=== PATIENT | female | born 1960 | race Caucasian/White ===

== ENCOUNTER 2020-04-08 17:04 | Inpatient (IN) | payer MEDICARE, MEDICAID, SELFPAY ==
[2020-04-08] VITALS (9 sets, daily range): BP systolic 97–144; BP diastolic 62–79; PULSE 71–87; RESP 16–20; TEMP 36.3–36.8; O2SAT 98–100; BMI 19.1
--- NOTE | ~2020-04-08 | US_ITS ---
EXAMINATION: US carotid duplex BI DATE: 04/09/2020 13:04 INDICATION: Intermittent slurred speech. TECHNIQUE: Grayscale, color Doppler, and pulsed Doppler images of the cervical carotid arteries were obtained. The degree of vessel stenosis is placed in one of the following categories: normal, <50%, 5 0-69%, >=70% but less than near-occlusion, near-occlusion, or total occlusion. Note that percent sten osis relative to normal distal artery lumen diameter is indirectly measured from velocity measurement s as described by Suhail, et al. Radiology 2003; 229:340-346. COMPARISON: None. FINDINGS: RIGHT: The right common carotid artery (CCA) peak systolic velocity (PSV) is 79 cm/s. The right internal car otid artery (ICA) PSV is 78 cm/s. The right ICA end-diastolic velocity (EDV) is 11 cm/s. The right IC A/CCA PSV ratio is 1.0. Grayscale and color Doppler images yield an estimate of <50% diameter reducti on from plaque in the ICA. There is antegrade flow in the right vertebral artery. LEFT: The left CCA PSV is 69 cm/s. The left ICA PSV is 64 cm/s. The left ICA EDV is 15 cm/s. The left ICA/C CA PSV ratio is 0.9. Grayscale and color Doppler images yield an estimate of <50% diameter reduction from plaque in the ICA. There is antegrade flow in the left vertebral artery. IMPRESSION: 1. <50% stenosis in the right internal carotid artery. 2. <50% stenosis in the left internal carotid artery. Reviewed, dictated and finalized at location A.
--- NOTE | ~2020-04-08 | XR_ITS ---
EXAMINATION: XR chest 1V DATE: 04/08/2020 18:10 INDICATION: Intermittent slurred speech. TECHNIQUE: A single frontal view of the chest was obtained. COMPARISON: None. FINDINGS: There is mild scarring at right lung apex. No pleural effusion or pneumothorax. The heart s ize is normal. IMPRESSION: 1. Mild scarring at right lung apex. Reviewed, dictated and finalized at location A.
--- NOTE | ~2020-04-08 | MR_ITS ---
EXAMINATION: MR brain/brain stem wo/w con DATE: 04/09/2020 12:38 INDICATION: Stroke. Slurred speech. TECHNIQUE: Magnetic resonance imaging (MRI) of the brain and brainstem was performed without and with 8 mL MultiHance intravenous contrast. Sequences included sagittal and axial T1-weighted FSE, axial d iffusion-weighted FS EPI, axial T2*-weighted GRE, axial T2-weighted FLAIR Propeller, and axial T2-vaughn ghted Propeller. Postcontrast sequences included axial and coronal T1-weighted FSE. Apparent diffusio n coefficient (ADC) maps were created. COMPARISON: Head CT 04/08/2020 FINDINGS: There is chronic encephalomalacia in right frontotemporal region. There is an old lacunar i nfarct in left caudate nucleus. There is a punctate acute infarct in right frontoparietal region. The re is a small acute infarct in right parietal lobe. There are small acute infarcts in the bilateral f rontal lobe deep white matter. There is a small acute infarct in the left frontoparietal region. Ther e is no intracranial hemorrhage. There are scattered areas of nonspecific increased T2-weighted signa l intensity in the cerebral white matter, which is within normal limits for the patient's age. There is a wedge-shaped small enhancing lesion in right cerebellum, likely a subacute infarct. There is ex vacuo dilatation of temporal horn of right lateral ventricle. The paranasal sinuses are clear. The or bits are normal. The mastoid air cells are normal. IMPRESSION: 1. Small acute infarcts in the frontal lobes, right parietal lobe, and left frontoparietal region. 2. Small enhancing lesion in right cerebellum, likely a subacute infarct. 3. Chronic encephalomalacia in right frontotemporal region. Old lacunar infarct in left caudate nucle us. Reviewed, dictated and finalized at location A. IMPRESSION: 1. Small acute infarcts in the frontal lobes, right parietal lobe, and left fro ntoparietal region. 2. Small enhancing lesion in right cerebellum, likely a subacute infarct. 3. Chronic encephalomalacia in right frontotemporal region. Old lacunar infarct in left caudate nucleus.
--- NOTE | ~2020-04-08 | CT_ITS ---
EXAMINATION: CT brain wo con DATE: 04/08/2020 18:07 INDICATION: Intermittent slurred speech. TECHNIQUE: Computed tomography (CT) of the head was performed without intravenous contrast. The mA wa s adjusted according to patient size. Iterative reconstruction technique was employed. The dose-lengt h product was 605.33 mGy-cm. COMPARISON: None FINDINGS: There is chronic encephalomalacia in the right frontotemporal region. There is an old lacun ar infarct in left caudate nucleus. There are scattered areas of low attenuation in the cerebral whit e matter, which is within normal limits for the patient's age. There is no intracranial hemorrhage, a cute infarction, or abnormal intracranial mass lesion. There is ex vacuo dilatation of temporal horn of right lateral ventricle. The paranasal sinuses are clear. The orbits are normal. The mastoid air c ells are normal. IMPRESSION: 1. Chronic encephalomalacia in right frontotemporal region. 2. Old lacunar infarct in left caudate nucleus. Reviewed, dictated and finalized at location A.
--- NOTE | 2020-04-08 17:17 | ED.NEUROSD ---
HPI - Neuro Symptoms/Deficit General Chief Complaint: Neuro Symptoms/Deficit Stated Complaint: MILD STROKES Time Seen by Provider: 04/08/20 17:17 Source: patient and family Mode of arrival: wheelchair Limitations: no limitations History of Present Illness HPI Narrative: Patient is a 5-year-old female who presents with her daughter for evaluation of various symptoms. Per the patient, she states she is here for acute on chronic lower back pain. Pain is described as dull, aching in nature, mild in nature. Patient states it has been very chronic for her. Patient's daughter states she is worried that her mom is been having small strokes, states that she has times throughout the day where she seems intermittently confused. She has had short periods of time, approximately 1 to 3 minutes, where the daughter has felt the patient experienced some difficulty with speech. Patient denies any current difficulty with speech, facial numbness, arm numbness or leg numbness. Patient's daughter states her mom has not been very reliable with her healthcare over the past several months. She was going to see a new primary care physician, but was not able to obtain follow-up due to a canceled appointment. Patient denies any fever, chills, nausea, vomiting, chest pain or abdominal pain. Related Data Home Medications Medication Instructions Recorded Confirmed No Home Medications 04/08/20 04/08/20 Allergies Allergy/AdvReac Type Severity Reaction Status Date / Time No Known Allergies Allergy Mild Verified 04/08/20 17:21 Review of Systems Review of Systems: Narrative: CONSTITUTIONAL: Denies fever, chills, or sweats. EYES: Denies visual changes, redness, or discharge. ENT: Denies rhinorrhea, congestion, sore throat, or otalgia. CARDIOVASCULAR: Denies chest pain, palpitations, or edema. RESPIRATORY: Denies cough or dyspnea. GASTROINTESTINAL: Denies abdominal pain, nausea, vomiting, or diarrhea. GENITOURINARY: Denies dysuria or hematuria. SKIN: Denies rash or itching. MUSCULOSKELETAL: Denies back pain, joint pain, or myalgia. NEUROLOGIC: Denies headache, numbness, or weakness. FORMERLY [facility], [facility] Past Medical History Medical History (Updated 04/08/20 @ 18:27 by Lisa Patrick MD) No pertinent past medical history Surgical History Surgical History (Updated 04/08/20 @ 18:10 by Lisa Patrick MD) No pertinent past surgical history Social History Social History (Updated 04/08/20 @ 18:11 by Lisa Patrick MD) Smoking status: Current every day smoker Tobacco type: cigarettes Alcohol intake: never Substance use: never Living arrangements: alone Gender identity (if verbalized by the patient): Female Exam Narrative: Exam Narrative: GENERAL: Awake, alert, conversant, thin HEAD: Normocephalic, atraumatic. EYES: PERRLA and EOMI. ENT: Nares clear, no rhinorrhea or epistaxis. Mucous membranes moist. NECK: Supple. CHEST: No respiratory distress, breathing even and non labored HEART: Regular rate, sinus rhythm ABDOMEN:Non distended, non tender EXTREMITIES: Normal range of motion. No edema. SKIN: Warm, dry, no rash. NEURO:No focal deficits. Alert and oriented x3 Course Vital Signs Vital signs: Vital Signs Pulse Rate 85 04/08/20 17:17 Respiratory Rate 16 04/08/20 17:17 Blood Pressure 144/79 H 04/08/20 17:17 Pulse Oximetry 100 04/08/20 17:17 Pulse Rate 87 04/08/20 18:36 Respiratory Rate 20 04/08/20 18:36 Blood Pressure 138/70 04/08/20 18:36 Pulse Oximetry 98 04/08/20 18:36 MDM - Neuro Symptoms/Deficit MDM Narrative Medical decision making narrative: Patient presenting for evaluation of concern from stroke from daughter who has noticed intermittent speech difficulties and patient over the past several weeks. At the time of initial assessment, ABCs are intact and vital signs are stable. Physical exam notable for thin patient who without any focal neurological deficits. No pain on exam. She does
--- NOTE | 2020-04-08 17:39 | ECG_ITS ---
Measurements Intervals [place] Rate: 86 P: 69 DE: 190 QRS: -62 QRSD: 134 T: 31 QT: 413 QTc: 496 Interpretive Statements SINUS RHYTHM POSSIBLE LEFT ATRIAL ENLARGEMENT LEFT AXIS DEVIATION RIGHT BUNDLE BRANCH BLOCK BASELINE ARTIFACT- I, II, AVR, AVL, AVF ABNORMAL ECG Electronically Signed On 04-09-2020 7:42:29 CDT by Zack Mtz D.O.
[2020-04-08 17:51] LABS: Glucose Point of Care 108 (65-105)
[2020-04-08 17:53] LABS: Basophils Percent Auto 0.3 % (0.2-1.2); Eosinophils Absolute Auto 0.1 K/mm3 (0-0.3); Eosinophils Percent Auto 1.1 % (0-4.4); Hematocrit 34.4 % (37.0-47.0); Hemoglobin 11.6 g/dL (12.0-15.0); Immature Granulocyte Absolute 0.01 K/mm3 (0.00-0.031); Immature Granulocyte Percent A 0.2 % (0-0.5); Lymphocytes Absolute Auto 2.18 K/mm3 (0.9-3.2); Lymphocytes Percent Auto 34.1 % (18.3-44.2); Mean Corpuscular HGB Conc 33.7 g/dl (32-36); Mean Corpuscular Hemoglobin 30.3 pg (26-34); Mean Corpuscular Volume 89.8 fl (80-100); Mean Platelet Volume 9.3 fl (7.4-10.4); Monocytes Absolute Auto 0.5 K/mm3 (0.1-0.6); Monocytes Percent Auto 7.2 % (2.6-8.5); Neutrophils Absolute Auto 3.7 K/mm3 (1.3-6.7); Neutrophils Percent Auto 57.1 % (45.5-73.1); Platelet Count Result 215 k/mm3 (150-375); Red Blood Count 3.83 M/mm3 (4.2-5.4); Red Cell Distribution Width 14.9 % (11.5-14.5); White Blood Count 6.4 K/mm3 (4.5-10.0)
[2020-04-08 18:02] LABS: INR 1.2; Prothrombin Time 14.9 Seconds (11.1-14.7)
[2020-04-08 18:03] LABS: Partial Thromboplastin Time 30.8 SECONDS (22.3-36.8)
[2020-04-08 18:14] LABS: Blood Urea Nitrogen 7 mg/dL (7-17); Calcium 8.4 mg/dL (8.4-10.2); Carbon Dioxide 24 mmol/L (22-30); Chloride 100 mmol/L (98-107); Estimated CRCL calculation 46 ml/min; Estimated Glomerular Filt Rate > 60; Glucose 113 mg/dL (65-105); Potassium 2.6 mmol/L (3.4-5.0); Sodium 134 mmol/L (137-145)
[2020-04-08] MEDS: LORazepam 0.5 MG TABLET PO (18:14)
--- NOTE | 2020-04-08 18:26 | PC.NURSE ---
RN at bedside. Pt placed on bedpan. Daughter at bedside, call light within reach.
[2020-04-08] MEDS: POTASSIUM CHLORIDE 20 MEQ PACKET (FOR LIQUID) 40 MEQ PO (18:36)
--- NOTE | 2020-04-08 19:47 | PC.NURSE ---
RN spoke with Dr. Patrick to clarify- Potassium order in the system twice. Only to give one dose of potassium at this time.
--- NOTE | 2020-04-08 22:44 | ADMIMU ---
This patient, Madalyn Honeycutt, was admitted to IMU status, and placed in IMU Room 209-01 on 04/08/20 at 2116. Patient/family oriented to hospital policies and general routines including ID bracelet, bed and alarms, visiting hours, pain management, procedures, bathroom and other care routines, personal items, smoking policy, room service/diet, and visiting hours. Valuables list has been completed. Information on how to activate the Rapid Response Team has been discussed. Patient/Family are encouraged to report perceived risks to care and to ask questions if they do not understand what they are told or what they should do.
[2020-04-08 22:45] LABS: Troponin I 0.083 ng/mL (0.000-0.034)
[2020-04-08 23:01] LABS: Blood Urea Nitrogen 6 mg/dL (7-17); Calcium 8.8 mg/dL (8.4-10.2); Carbon Dioxide 24 mmol/L (22-30); Chloride 102 mmol/L (98-107); Estimated CRCL calculation 46 ml/min; Estimated Glomerular Filt Rate > 60; Glucose 93 mg/dL (65-105); Potassium 3.1 mmol/L (3.4-5.0); Sodium 134 mmol/L (137-145)
--- NOTE | 2020-04-08 23:02 | PM.IMHP ---
H&P: HPI History of Present Illness Chief complaint: CVA, hypokalemia, elevated troponin Narrative: Madalyn Honeycutt is a 59 year old female who is brought to the emergency room by her daughter. The patient tells me that she lives with her daughter. The daughter was concerned about her having stroke-like symptoms. The patient has chronic lower back pain but does not take any pain medication for lower back pain. The patient stated that she injured her pack years ago and uses a back brace. The patient stated that she has not been eating very well lately because she it has been too hot she just does not feel like eating. She has no abdominal pain. No nausea vomiting no diarrhea. No complaints of any fever. Patient has short periods of confusion at times lasting about 1-3 minutes. Patient was having some difficulty with her speech the daughter Vin states that her mom has not been very reliable with her healthcare over the past several months. The patient tells me she has not had any health problems and she is not on any medication nor has she has a surgeries. Patient was not able to follow-up with her primary care doctor due to canceled appointment. Her H&H was noted to be 11.6 and 34.4. Her potassium was found to be 2.6 which came up to 3.1 after potassium supplement. Patient was given Ativan x1 and oral potassium in the emergency room. Head CT was read as chronic encephalomalacia in the right frontal temporal region. Old lacunar infarct in the left caudate nucleus. Initial troponin 0.080. Three or troponin is 0.083. Patient denies any chest pain. Neurology has been consulted. Cardiology has been consulted. Date of service 04/08/2020 Review of Systems Review of Systems: All systems reviewed & are unremarkable except as noted in HPI and below Constitutional: Constitutional: Reports as per HPI and Reports no additional constitutional complaints Eyes: Eyes: Reports as per HPI and Reports no additional eye complaints ENT: Reports system reviewed and no additional complaints, except as documented and Reports Normal hearing present Cardiovascular: Cardiovascular: Reports no additional cardiovascular complaints Respiratory: Respiratory: Reports no additional respiratory complaints and Reports no additional respiratory complaints Gastrointestinal: Gastrointestinal: Reports as per HPI and Reports no additional gastrointestinal complaints Musculoskeletal: Musculoskeletal: Reports no additional musculoskeletal complaints Integumentary/Breasts: Skin/Breast: Reports system reviewed and no additional complaints, except as docu and Reports as per HPI Neurologic: Reports system reviewed and no additional complaints, except as documented, Reports as per HPI and Reports Normal hearing present Psychiatric: Psychiatric: Reports no additional psychiatric complaints and Reports as per HPI Endocrine: Endocrine: Reports no additional endocrine complaints Hematologic/Lymphatic: Hematologic/Lymphatic: Reports no additional hematologic/lymphatic complaints Allergic/Immunologic: Allergic/Immunologic: Reports no additional allergic/immunologic complaints [facility] Past Medical History Medical History (Updated 04/08/20 @ 23:10 by Romina Han NP) Chronic back pain CVA (cerebral vascular accident) No pertinent past medical history Surgical History Surgical History No pertinent past surgical history Family History Family History (Updated 04/08/20 @ 23:12 by Romina Han NP) Mother maternal Other Unknown family medical history Social History Social History (Updated 04/08/20 @ 23:14 by Romina Han NP) Social History: The patient tells me that she lives with her daughter. She tells me that her daughter that she lives with is the durable power piccolo mechanic for healthcare. The patient tells me that she is . Her she has 3 daughters and 2 sons.
[2020-04-08] MEDS: ASPIRIN 325 MG ENTERIC TABLET PO (23:57)
[2020-04-08] MEDS: POTASSIUM CHLORIDE 20 MEQ PACKET (FOR LIQUID) PO (23:57)
[2020-04-09] VITALS (14 sets, daily range): BP systolic 98–117; BP diastolic 41–84; PULSE 49–75; RESP 16–20; TEMP 36.5–37.4; O2SAT 100
--- NOTE | 2020-04-09 | ECHO_ITS ---
Patient Info Name: Madalyn Honeycutt Age: 59 years : 1960 Gender: Female Ht: 60 in Wt: 98 lbs BSA: 1.37 m2 HR: 83 bpm BP: 110 / 54 mmHg Technical Quality: Good Exam Date: 04/09/2020 8:48 AM Exam Location: [facility] Pulmonary Exam Room: 209 Patient Status: Inpatient Admit Date: 04/08/2020 Staff Ordering Physician: Lisa Patrick MD Lamina Searcher: Meagan Case RDCS Attending Provider: Melonie Dai MD Referring Physician: Celina STEPHEN; Exam Type: CA echo doppler color flow Study Info Indications - elevated trops Complete two-dimensional, color flow and Doppler transthoracic echocardiogram is performed. Summary 1. Left ventricular chamber dimension is normal. 2. Left ventricular systolic function is normal, estimated at 65-70%. 3. Left ventricular septal wall motion is normal. 4. Right ventricular chamber dimension is normal. 5. Right ventricular systolic function is normal. 6. There is mild tricuspid valve regurgitation. 7. Mild pulmonary hypertension, estimated pulmonary arterial systolic pressure is 30 mmHg. Left Ventricle Left ventricular chamber dimension is normal. Left ventricular systolic function is normal, estimated at 65-70%. There is no increased left ventricular wall thickness. Left ventricular septal wall motion is normal. The left ventricular diastolic function is normal. Right Ventricle Right ventricular chamber dimension is normal. Right ventricular systolic function is normal. Left Atria Left atrial chamber dimension is normal. Right Atria Right atrial chamber dimension is mildly enlarged. Aortic Valve The aortic valve is trileaflet. There is no aortic valve sclerosis. There is no aortic valve stenosis. There is no aortic valve regurgitation. Pulmonic Valve The pulmonic valve is normal. There is no pulmonic valve stenosis. There is no pulmonic regurgitation. Mitral Valve The mitral valve has normal leaflets. There is no mitral valve stenosis. There is no mitral valve regurgitation. Tricuspid Valve The tricuspid valve leaflets are normal. There is no significant tricuspid valve stenosis. There is mild tricuspid valve regurgitation. Mild pulmonary hypertension, estimated pulmonary arterial systolic pressure is 30 mmHg. Pericardium/Pleural The pericardium appears normal. There is no pericardial effusion. Inferior Vena Cava Normal inferior vena cava with >50% collapse upon inspiration consistent with normal right atrial pressure, 10 mmHg. Aorta The aortic root size at the sinus of Valsalva is normal. The prox ascending aorta size is normal. Left Ventricular Outflow Tract Name Value Normal LVOT 2D LVOT Diameter 2.0 cm LVOT Doppler LVOT Peak Gradient 4 mmHg LVOT Mean Gradient 2 mmHg LVOT VTI 22 cm LVOT VTI/AV VTI Ratio 1.1 LVOT Stroke Volume 67 ml LVOT CO 13.2 l/min LVOT CI 9.7 l/min/m2
[2020-04-09 04:53] LABS: Basophils Percent Auto 0.6 % (0.2-1.2); Eosinophils Absolute Auto 0.1 K/mm3 (0-0.3); Hematocrit 34.4 % (37.0-47.0); Hemoglobin 11.3 g/dL (12.0-15.0); Immature Granulocyte Absolute 0.01 K/mm3 (0.00-0.031); Immature Granulocyte Percent A 0.2 % (0-0.5); Lymphocytes Absolute Auto 1.93 K/mm3 (0.9-3.2); Lymphocytes Percent Auto 38.4 % (18.3-44.2); Mean Corpuscular HGB Conc 32.8 g/dl (32-36); Mean Corpuscular Hemoglobin 29.4 pg (26-34); Mean Corpuscular Volume 89.6 fl (80-100); Mean Platelet Volume 9.3 fl (7.4-10.4); Monocytes Absolute Auto 0.4 K/mm3 (0.1-0.6); Neutrophils Absolute Auto 2.6 K/mm3 (1.3-6.7); Neutrophils Percent Auto 51.8 % (45.5-73.1); Platelet Count Result 203 k/mm3 (150-375); Red Blood Count 3.84 M/mm3 (4.2-5.4); Red Cell Distribution Width 14.7 % (11.5-14.5)
[2020-04-09 05:10] LABS: Blood Urea Nitrogen 6 mg/dL (7-17); CRP 1.3 mg/dL (<1.0); Calcium 8.5 mg/dL (8.4-10.2); Carbon Dioxide 24 mmol/L (22-30); Chloride 106 mmol/L (98-107); Estimated CRCL calculation 50 ml/min; Estimated Glomerular Filt Rate > 60; Glucose 80 mg/dL (65-105); Magnesium 1.8 mg/dL (1.6-2.3); Potassium 3.7 mmol/L (3.4-5.0); Sodium 135 mmol/L (137-145)
[2020-04-09 05:26] LABS: Troponin I 0.092 ng/mL (0.000-0.034)
[2020-04-09] MEDS: ASPIRIN 81 MG ENTERIC TABLET PO (08:15)
--- NOTE | 2020-04-09 11:36 | PM.CNCAR ---
Assessment and Plan Additional Plan mild elevation in trop in setting of possible stroke, no evidence of ACS, no dynamic EKG changes, Trop with no significant changes, TTE with normal EF and no regional wall motion abnormalities, plan, no further cardiac work up needed, evaluation for stroke History of Present Illness History of Present Illness Consult date/time: 04/09/20 11:36 Consult reason: Other (elevated troponin) Reason For Visit: CVA, hypokalemia, elevated troponin Narrative: Patient presented with her daughter because of noted facial asymmetry. She used to live by herself but with her daughter help, but last 3 days, daughter noted that ptn is weaker and have worsening back pain and decreased activity with facial asymmetry when she talks. Patient is not complaining of pain or numbness or weakness. It was noted that her troponin was mildly elevated but no chest pain. Review of Systems Review of Systems: All systems reviewed & are unremarkable except as noted in HPI and below PMFSH Past Medical History Medical History (Updated 04/08/20 @ 23:10 by Romina Han NP) Chronic back pain CVA (cerebral vascular accident) No pertinent past medical history Surgical History Surgical History No pertinent past surgical history Family History Family History (Updated 04/08/20 @ 23:12 by Romina Han NP) Mother maternal Other Unknown family medical history Social History Social History (Updated 04/08/20 @ 23:14 by Romina Han NP) Social History: The patient tells me that she lives with her daughter. She tells me that her daughter that she lives with is the durable power attorney recruiter for healthcare. The patient tells me that she is . Her she has 3 daughters and 2 sons. She smokes 7 -8 cigarettes a day. She drinks about 2 beers every 3-4 days. She is on disability. She is a full code. Years smoked: 42 Smoking status: Light tobacco smoker Tobacco type: cigarettes Second hand tobacco smoke exposure: Yes Alcohol intake: current Drinks per week: 2 Substance use: never Substance use type: does not use Living arrangements: alone Gender identity (if verbalized by the patient): Female Spiritual care concerns: No Meds Home Medications and Allergies Home Medications Medication Instructions Recorded Confirmed Type No Home Medications 04/08/20 04/08/20 History Allergies Allergy/AdvReac Type Severity Reaction Status Date / Time No Known Allergies Allergy Mild Verified 04/08/20 17:21 Vital Signs Vital Signs - 24 hr 04/08/20 17:17 04/08/20 17:45 04/08/20 18:36 Temperature Pulse Rate 85 81 87 Respiratory Rate 16 16 20 Blood Pressure 144/79 H 129/66 138/70 Pulse Oximetry 100 98 98 04/08/20 19:48 04/08/20 21:01 04/08/20 21:02 Temperature 36.8 C Pulse Rate 75 72 72 Respiratory Rate 18 20 20 Blood Pressure 117/62 97/62 L 97/62 L Pulse Oximetry 100 100 100 04/08/20 21:20 04/08/20 21:30 04/08/20 22:00 Temperature 36.3 C L Pulse Rate 71 72 74 Respiratory Rate 18 Blood Pressure 117/63 Pulse Oximetry 100 04/09/20 00:00 04/09/20 02:00 04/09/20 04:00 Temperature 37.4 C Pulse Rate 69 57 L 61 Respiratory Rate 16 Blood Pressure 117/67 Pulse Oximetry 100 04/09/20 04:25 04/09/20 06:00 04/09/20 08:00 Temperature 36.7 C 36.5 C Pulse Rate 63 49 L 75 Respiratory Rate 18 16 Blood Pressure 110/54 L 102/41 L Pulse Oximetry 100 100 04/09/20 10:00 Temperature Pulse Rate 68 Respiratory Rate Blood Pressure Pulse Oximetry Exam Const: General: comfortable and no acute distress Other: Able to lie flat HENMT: General nose exam: Normal nares present and no epistaxis Mouth: Yes moist mucous membranes Eyes: General: appearance normal, both eyes and all related structures Sclera: sclerae normal Pupils: Equal, round and reactive pupils pr
--- NOTE | 2020-04-09 12:33 | PCOTNOTE ---
Patient independent in room at this time as reported by RN. Physician notified and discussion of awaiting MRI results before proceeding with any therapy. Patient may D/C today pending results and medical status.
--- NOTE | 2020-04-09 12:34 | PCPTNOTE ---
*PT/OT orders received....per NSG patient is ambulating INDEP'LY in her room...patient is currently at MRI... suggested to see the patient following MRI
[2020-04-09] MEDS: POTASSIUM CHLORIDE 20 MEQ TABLET PO (13:22)
--- NOTE | 2020-04-09 15:29 | PM.IMPN ---
Progress Note: A&P Assessment and Plan (1) Elevated troponin: Code(s): R79.89 - Other specified abnormal findings of blood chemistry Status: Acute Assessment and Plan: Patient's troponin levels are level. She is not having any chest pain. Cardiology has seen does not think that this is acute coronary event and I agree. Echo normal ejection fraction 65% with no wall motion abnormalities either. (2) Acute hypokalemia: Code(s): E87.6 - Hypokalemia Status: Acute Assessment and Plan: Replace potassium as needed. 2.6-3.7. It feels much better (3) Cerebrovascular accident: Code(s): I63.9 - Cerebral infarction, unspecified Status: Acute Assessment and Plan: started the patient on an aspirin daily. MR revealed acute infarct in the left and right frontal areas. Statin will be added and smoking cessation will be much more important. Carotid Dopplers are negative and echocardiogram revealed no source of any emboli. EKG sinus rhythm but will continue to monitor (4) Chronic back pain: Code(s): M54.9 - Dorsalgia, unspecified; G89.29 - Other chronic pain Status: Chronic Assessment and Plan: Physical therapy and occupational therapy to evaluate the patient. She is not on any chronic pain medications. Subjective Date/time seen: 04/09/20 15:29 Interval history: Date of visit 04/09. 59-year-old white female smoker presented to emergency room when her family noticed some difficulty with speech and was concerned about possible stroke. Symptoms here had abated but was hypokalemic with a slight elevation in troponin so she is admitted for evaluation of the same. Presently she feels fine with no specific plaques Exam Narrative: Exam Narrative: Blood pressure 106/84 pulse is 66 saturating 100% on room air afebrile Pupils equal reactive to light sclera anicteric Lungs clear no wheezing or consolidation CV regular rate rhythm no murmurs Abdomen is soft nontender Extremities without edema good distal pulses Neuro alert pleasant cooperative no focal deficits at present time Objective Data Vital Signs Vital Signs: Vital Signs - 24 hr 04/08/20 17:17 04/08/20 17:45 04/08/20 18:36 Temperature Pulse Rate 85 81 87 Respiratory Rate 16 16 20 Blood Pressure 144/79 H 129/66 138/70 Pulse Oximetry 100 98 98 04/08/20 19:48 04/08/20 21:01 04/08/20 21:02 Temperature 36.8 C Pulse Rate 75 72 72 Respiratory Rate 18 20 20 Blood Pressure 117/62 97/62 L 97/62 L Pulse Oximetry 100 100 100 04/08/20 21:20 04/08/20 21:30 04/08/20 22:00 Temperature 36.3 C L Pulse Rate 71 72 74 Respiratory Rate 18 Blood Pressure 117/63 Pulse Oximetry 100 04/09/20 00:00 04/09/20 02:00 04/09/20 04:00 Temperature 37.4 C Pulse Rate 69 57 L 61 Respiratory Rate 16 Blood Pressure 117/67 Pulse Oximetry 100 04/09/20 04:25 04/09/20 06:00 04/09/20 08:00 Temperature 36.7 C 36.5 C Pulse Rate 63 49 L 75 Respiratory Rate 18 16 Blood Pressure 110/54 L 102/41 L Pulse Oximetry 100 100 04/09/20 10:00 04/09/20 12:00 04/09/20 14:00 Temperature 37.2 C Pulse Rate 68 62 68 Respiratory Rate 16 Blood Pressure 106/84 Pulse Oximetry 100 Intake/Output Intake/Output: Intake & Output 04/06/20 04/07/20 04/08/20 04/09/20 23:59 23:59 23:59 23:59 Intake Total 580 Output Total 675 50 Balance -675 530 Meds/Results Medications: Active Medications Generic Name Dose Route Start Last Admin Trade Name Freq PRN Reason Stop Dose Admin Acetaminophen 650 mg 04/08/20 18:52 Tylenol Tablet PO Q4H PRN Mild Pain (1-3) or Fever Aspirin 81 mg 04/09/20 09:00 04/09/20 08:15 Aspirin Ec PO 81 mg QAM [place] Administration Atorvastatin Calcium 20 mg 04/10/20 09:00 Lipitor PO DAILY [facility] Radiology Results: ITS Impressions Head CT 04/08/20 18:08 IMPRESSION: 1. Chronic encephalomalacia in right frontotemporal region.
--- NOTE | 2020-04-09 15:39 | CONS_ITS ---
DATE OF CONSULTATION: 04/08/[address] Melonie Dai. HISTORY OF PRESENT ILLNESS: A 59-year-old has been admitted to [facility] through the emergency room, where she was brought by her daughter with the concern about the stroke-like symptoms. In addition to the ongoing history of: 1. Chronic low back pain for which she does not take any medication. 2. Recently not eating very well without any symptomatology in reference to the belly. 3. The patient was having some difficulty with speech as per the daughter. The patient herself has not been taking any medication. At the time of initial evaluation in the emergency room, she was found to have the potassium of 2.6, which came up to 3.[address] scan revealed chronic encephalomalacia in the right frontal temporal lobe and old lacunar infarct in left caudate nucleus. Troponin was 0.080. Additionally, the patient has ongoing history of as mentioned above: 1. Chronic back pain. 2. History of the previous cerebrovascular accident. 3. No specific surgery. 4. Current alcohol intaker and also drinking 2 drinks per week, also smoking though light. MEDICATIONS: The patient had not been taking any medication. ALLERGIES: SHE HAS NOT BEEN ALLERGIC TO ANY MEDICATION. PHYSICAL EXAMINATION: VITAL SIGNS: Evaluation revealed her to have normal vital signs. GENERAL: Normal. HEENT: Head normocephalic with no cranial bruit. Ear, nose, throat examination normal. NECK: Supple with no cervical bruit. No thyromegaly. No lymphadenopathy. HEART: Regular with no murmur. LUNGS: Clear to auscultation with no rhonchi or crepitation. NEUROLOGICAL: She was awake, alert, cooperative, in no obvious acute distress. Pupils round, regular. Franz of vision full. Extraocular movements full. Face symmetrical. Tongue midline. Motor examination revealed her to have left-sided subtle weakness with hyperreflexia. Upgoing plantar responses. There was no evidence of gross cerebellar deficit. LABORATORY STUDIES: Evaluation up until now included a Doppler study of the carotid, which revealed normal left ventricular dimension, function, motion with mild tricuspid regurgitation and mild pulmonary hypertension. Carotid Doppler study at this stage is pending and so as the MRI, but the initial CT scan of the head in the emergency room documented chronic encephalomalacia in the right frontotemporal region. PLAN: If the Doppler studies come back negative, then she will be discharged on aspirin 81 mg daily in addition to the Keppra 500 mg q.12 hours, because she could very well have the seizure, because of the focal cerebral insult and needs to be followed as an outpatient. BRIAN AGUILAR M.D. PARCEL CARRIER PARCEL CARRIER D I MT: Millicent
[2020-04-09] MEDS: levETIRAcetam 500 MG TABLET PO (20:25)
[2020-04-10] VITALS: PULSE 56
[2020-04-10 03:34] VITALS: BP 97/57; PULSE 56; RESP 18; TEMP 36.2; O2SAT 100
[2020-04-10 04:00] VITALS: PULSE 55
[2020-04-10 04:46] LABS: Alanine Aminotransferase 10 U/L (4-35); Albumin Level 2.8 g/dL (3.5-5.1); Alkaline Phosphatase 117 U/L (38-126); Aspartate Amino Transferase 25 U/L (14-36); Bilirubin,Total 0.3 mg/dL (0.2-1.3); Blood Urea Nitrogen 10 mg/dL (7-17); Calcium 8.5 mg/dL (8.4-10.2); Carbon Dioxide 25 mmol/L (22-30); Chloride 105 mmol/L (98-107); Estimated CRCL calculation 42 ml/min; Estimated Glomerular Filt Rate > 60; Glucose 81 mg/dL (65-105); Potassium 3.8 mmol/L (3.4-5.0); Sodium 134 mmol/L (137-145)
[2020-04-10 07:52] VITALS: BP 92/55; PULSE 59; RESP 16; TEMP 37.4; O2SAT 99
[2020-04-10 08:00] VITALS: PULSE 81
[2020-04-10] MEDS: ATORVASTATIN 20 MG TABLET PO (08:39)
[2020-04-10] MEDS: ASPIRIN 81 MG ENTERIC TABLET PO (08:39)
[2020-04-10] MEDS: levETIRAcetam 500 MG TABLET PO (08:39)
--- NOTE | 2020-04-10 11:06 | WPDNEUROPN ---
Progress Note: A&P Assessment and Plan (1) Chronic back pain: Code(s): M54.9 - Dorsalgia, unspecified; G89.29 - Other chronic pain Status: Chronic (2) Cerebrovascular accident: Code(s): I63.9 - Cerebral infarction, unspecified Status: Acute (3) Elevated troponin: Code(s): R79.89 - Other specified abnormal findings of blood chemistry Status: Acute (4) Acute hypokalemia: Code(s): E87.6 - Hypokalemia Status: Acute (5) Seizures: Code(s): R56.9 - Unspecified convulsions Status: Acute Additional Plan stable/home follow up with us in 6 weeks Review of Systems Review of Systems: All systems reviewed & are unremarkable except as noted in HPI and below Exam Const: General: cooperative, comfortable, no acute distress, alert and awake Nutritional Appearance: average body habitus and thin HENMT: Head: normal to inspection Ears: hearing grossly normal bilaterally General nose exam: Normal external nose present and No nasal discharge present Face and sinus: normal facial exam Mouth: Yes Normal oral and palatal mucosa present Eyes: General: appearance normal, both eyes and all related structures Alignment and Position: alignment normal Periorbital: periorbital findings normal Eyelids: eyelids normal Conjunctivae: conjunctivae normal Sclera: sclerae normal Pupils: Equal, round and reactive pupils present EOM: EOMs intact bilaterally Neck: Neck: full ROM Resp: Effort & Inspection: normal respiratory effort and able to speak in complete sentences Auscultation: clear to auscultation bilaterally Cardio: Rate: regular rate Rhythm: regular rhythm GI: Auscultation: normal bowel sounds Neuro: General: patient oriented x3, gait normal and moves all extremities Cognition (Neuro): normal cognition Speech: normal speech Objective Data Vital Signs Vital Signs: Vital Signs - 24 hr 04/09/20 12:00 04/09/20 14:00 04/09/20 16:00 Temperature 37.2 C 37.2 C Pulse Rate 62 68 65 Respiratory Rate 16 16 Blood Pressure 106/84 104/56 L Pulse Oximetry 100 100 04/09/20 17:33 04/09/20 19:37 04/09/20 20:00 Temperature 37.0 C Pulse Rate 71 71 64 Respiratory Rate 20 Blood Pressure 98/52 L Pulse Oximetry 100 04/09/20 23:53 04/10/20 00:00 04/10/20 03:34 Temperature 37.1 C 36.2 C L Pulse Rate 56 L 56 L 56 L Respiratory Rate 16 18 Blood Pressure 104/56 L 97/57 L Pulse Oximetry 100 100 04/10/20 04:00 04/10/20 07:52 04/10/20 08:00 Temperature 37.4 C Pulse Rate 55 L 59 L 81 Respiratory Rate 16 Blood Pressure 92/55 L Pulse Oximetry 99 Intake/Output Intake/Output: Intake & Output 04/07/20 04/08/20 04/09/20 04/10/20 23:59 23:59 23:59 23:59 Intake Total 1340 Output Total 675 250 250 Balance -675 1090 -250 Meds/Results Medications: Active Medications Generic Name Dose Route Start Last Admin Trade Name Freq PRN Reason Stop Dose Admin Acetaminophen 650 mg 04/08/20 18:52 Tylenol Tablet PO Q4H PRN Mild Pain (1-3) or Fever Aspirin 81 mg 04/09/20 09:00 04/10/20 08:39 Aspirin Ec PO 81 mg QAM [place] Administration Atorvastatin Calcium 20 mg 04/10/20 09:00 04/10/20 08:39 Lipitor PO 20 mg DAILY [place] Administration Levetiracetam 500 mg 04/09/20 21:00 04/10/20 08:39 Keppra Tablet PO 500 mg Q12HR [place] Administration Radiology Results: ITS Impressions Head CT 04/08/20 18:08 IMPRESSION: 1. Chronic encephalomalacia in right frontotemporal region. 2. Old lacunar infarct in left caudate nucleus. Chest X-Ray 04/08/20 18:11 IMPRESSION: 1. Mild scarring at right lung apex. Brain MRI 04/09/20 14:32 IMPRESSION: 1. Small acute infarcts in the frontal lobes, right parietal lobe, and left frontoparietal region. 2. Small enhancing lesion in right cerebellum, likely a subacute infarct. 3. Chronic encephalomalacia in right frontotemporal region. Old lacunar infarct in left
--- NOTE | 2020-04-10 18:29 | PM.DS ---
DS: Admitting Diagnosis Admitting Diagnosis Admitting Diagnosis: Other specified abnormal findings of blood chemistry DS: Discharge Diagnosis Discharge Diagnosis (1) Elevated troponin: Code(s): R79.89 - Other specified abnormal findings of blood chemistry Status: Acute Assessment and Plan: Patient's troponin levels are level. She is not having any chest pain. Cardiology has seen does not think that this is acute coronary event and I agree. Echo normal ejection fraction 65% with no wall motion abnormalities either. (2) Acute hypokalemia: Code(s): E87.6 - Hypokalemia Status: Acute Assessment and Plan: Replace potassium as needed. 2.6-3.7. It feels much better 3.8 at discharge, thought secondary to poor p.o. intake (3) Cerebrovascular accident: Code(s): I63.9 - Cerebral infarction, unspecified Status: Acute Assessment and Plan: started the patient on an aspirin daily. MR revealed acute infarct in the left and right frontal areas. Statin added and smoking cessation will be much more important. Carotid Dopplers are negative and echocardiogram revealed no source of any emboli. EKG sinus rhythm (4) Chronic back pain: Code(s): M54.9 - Dorsalgia, unspecified; G89.29 - Other chronic pain Status: Chronic Assessment and Plan: Physical therapy and occupational therapy to evaluate the patient. She is not on any chronic pain medications. DS: Summary Hospital Course Hospital Course: 59-year-old white female admitted with difficulty with speech according to daughter thought to have possible CVA. With hypokalemic 2.6 and potassium was replaced. Troponin was mildly elevated but flat response. MR revealed left and right frontal infarcts with cerebellar infarct also. Echocardiogram and carotid Doppler more unremarkable. Smoking cessation was indicated and aspirin and statin were added to her regime. She had no focal deficits. I was concerned about possibility of embolic phenomena with both hemispheres involved but Neurology and Cardiology did not suggest MENDOZA. She will follow-up with neurology in the neck is 2-3 weeks Time Spent with Patient Time attestation: Total time spent providing and/or coordinating discharge services: 35 minutes Exam Narrative: Exam Narrative: Condition on discharge Blood pressure 96/56 pulse is 56 and regular sat 100% on room air Pupils equal reactive to light sclera anicteric Lungs clear CV regular rate rhythm no murmurs Abdomen is soft nontender no masses Extremities without edema good distal pulses Neuro alert no focal deficits cranial nerves 2-12 are intact, speech clear DS: Data Data Completed and Pending Labs on day of discharge: Labs from last 24 hours 04/10/20 04:10 Sodium 134 L Potassium 3.8 Chloride 105 Carbon Dioxide 25 BUN 10 Creatinine 0.90 Estim Creat Clear Calc 42 Estimated GFR > 60 Glucose 81 Calcium 8.5 Total Bilirubin 0.3 Direct Bilirubin 0.0 AST 25 ALT 10 Alkaline Phosphatase 117 Total Protein 6.0 L Albumin 2.8 L Vitamin B12 283.0 Discharge Plan Discharge Attending physician on discharge: Reji Pal Consulting providers: Jarad Sawyer ; Sofia Brunson ; Amador Calderon Discharging Clinician: Reji Pal Patient Disposition: Home, Self-Care Activity: no driving and as tolerated Diet: regular Patient Instructions: Antibiotic Form, Aspirin (By mouth), Atorvastatin (By mouth), Levetiracetam (By mouth), How to Stop Smoking (DC), Pain Management in Older Adults (DC), Ischemic Stroke (DC) Stand Alone Forms: General Discharge Information Follow-up/Referrals: Jarad Sawyer MD [Physician] - 2 Weeks Amador Calderon MD [Physician] - 4 Weeks Discharge Medications: New atorvastatin 20 mg Tablet 20 mg PO DAILY Qty: 30 RF: 0 levetiracetam [Keppra] 500 mg Tablet 500 mg PO Q12HR Qty: 60 RF: 0 aspirin 81 mg Tablet,Delaye
== END 2020-04-10 12:47 | disposition home or self-care (01) | DRG 66 ==
LOC: ANHED 19:01 → ANHIMU 19:25
PROVIDERS: Family Medicine; Nurse Practitioner; Admitting Provider Family Medicine; Emergency Provider Emergency Medicine; Visit Provider Internal Medicine
DX: I63.9 Cerebral infarction, unspecified (principal); E87.6 Hypokalemia; R79.89 Other specified abnormal findings of blood chemistry; R56.9 Unspecified convulsions; M54.5 Low back pain; G89.29 Other chronic pain; F17.210 Nicotine dependence, cigarettes, uncomplicated; R47.9 Unspecified speech disturbances; Z86.73 Personal history of transient ischemic attack (TIA), and cerebral infarction without residual deficits
CPT/HCPCS: 36415; 70450; 70553; 71045; 80048; 80076; 82607; 82948; 83735; 84443; 84484; 85025; 85610; 85730; 86140; 93005; 93306; 93880; 97161; 97165; 99285; A9270; A9577